=== PATIENT | male | born 1935 | race Two or more races ===

== ENCOUNTER 2018-08-27 06:07 | Day surgery (SDC) | payer OTHER | END 2018-08-27 12:55 | disposition home or self-care (01) | LOC: AMB-ENDOS 06:07 | DX: K57.30 Diverticulosis of large intestine without perforation or abscess without bleeding (principal) ==

== ENCOUNTER → 2022-11-11 | Day surgery (SDC) | payer OTHER | END | disposition home or self-care (01) | LOC: ADM 11-07 14:15 → AMB-ENDOS 06:25 | PROVIDERS: ATTEND Surgery | DX: K57.32 Diverticulitis of large intestine without perforation or abscess without bleeding (principal); Z20.822 Contact with and (suspected) exposure to COVID-19 ==